=== PATIENT | male | born 1990 | race Caucasian/White ===

== ENCOUNTER → 2021-10-20 | Outpatient (CLI) | payer OTHER ==
[2021-10-20 18:25] LABS: Basophils # (A) 0.05 X 10*3/uL (0.00-0.10); Basophils % (A) 0.8 %; Eosinophils % (A) 1.5 %; HCT 50.7 % (39.6-50.0); HGB 16.7 g/dL (13.0-17.0); Immature Grans, Automated 0.5 %; Lymphocytes # (A) 1.65 X 10*3/uL (0.90-5.00); Lymphocytes % (A) 24.8 %; MCH 30.2 pg (27.0-32.0); MCHC 32.9 g/dL (32.0-37.0); MCV 91.7 fL (80.0-97.0); Mean Platelet Volume 11.1 fL (9.5-12.2); Monocytes # (A) 0.56 X 10*3/uL (0.20-1.00); Monocytes % (A) 8.4 %; NRBC Per 100 WBC 0 /100 WBCS (0.0-0.0); Neutrophils # (A) 4.27 X 10*3/uL (1.80-7.70); Platelet Count 211 X 10*3/uL (140-440); RBC 5.53 X 10*6/uL (4.40-5.60); WBC 6.66 X 10*3/uL (4.50-10.00)
[2021-10-20 18:43] LABS: ALT 31 U/L (10-49); AST 21 U/L (14-35); African American GFR (CKD) 129.6 (60.0-200.0); Albumin 4.9 g/dL (3.8-4.9); Albumin/Globulin Ratio 2.23 (1.60-3.17); Alkaline Phosphatase 50 U/L (41-126); BUN/Creat Ratio 16.56 Ratio (12.00-20.00); Blood Urea Nitrogen 14.9 mg/dL (9.0-27.0); Calcium 9.3 mg/dL (8.7-10.3); Carbon Dioxide 24.5 mmol/L (20.0-27.5); Chloride 103 mmol/L (96-109); Globulin 2.2 g/dL (1.6-3.3); Glucose 88 mg/dL (70-110); Non-African American GFR(CKD) 111.8 (60.0-200.0); Potassium 4.3 mmol/L (3.5-5.5); Sodium 140 mmol/L (135-145); Total Protein 7.1 g/dL (6.2-8.2)
[2021-10-20 18:56] LABS: Chol/HDL Ratio 2.65 Ratio
[2021-10-20 19:33] LABS: Estradiol 30.7 pg/mL
== END | disposition home or self-care (01) ==
LOC: LABWHC1 12:14
PROVIDERS: ATTEND Family Medicine
DX: E34.9 Endocrine disorder, unspecified (principal)
CPT/HCPCS: 36415; 80053; 80061; 82670; 83036; 83721; 84146; 84403; 84443; 84481; 85025

== ENCOUNTER → 2023-04-25 | Outpatient (CLI) | payer OTHER ==
[2023-04-26 02:05] LABS: HCT 47.2 % (39.6-50.0); HGB 15.4 d/dL (13.0-17.0); MCH 30.7 pg (27.0-32.0); MCHC 32.6 d/dL (32.0-37.0); Mean Platelet Volume 11.6 FL (9.5-12.2); NRBC Per 100 WBC 0 X 10*3/uL (0.00-0.01); Platelet Count 214 X 10*3/uL (140-440); RBC 5.02 X 10*6/uL (4.40-5.60); RDW 13.2 % (11.5-14.5); WBC 8.69 X 10*3/uL (4.50-10.00)
== END | disposition home or self-care (01) ==
LOC: LABWHC1 16:33
PROVIDERS: ATTEND Family Medicine
DX: E34.9 Endocrine disorder, unspecified (principal)
CPT/HCPCS: 36415; 84403; 85027

== ENCOUNTER → 2023-07-26 | Outpatient (CLI) | payer OTHER ==
[2023-07-26 20:21] LABS: HCT 48.8 % (39.6-50.0); HGB 16.4 g/dL (13.0-17.0); MCH 30.9 pg (27.0-32.0); MCHC 33.6 g/dL (32.0-37.0); MCV 92.1 FL (80.0-97.0); Mean Platelet Volume 11.3 FL (9.5-12.2); NRBC Per 100 WBC 0 X 10*3/uL (0.00-0.01); Platelet Count 217 X 10*3/uL (140-440); WBC 8.48 X 10*3/uL (4.50-10.00)
[2023-07-27 02:29] LABS: Estradiol 84.1 pg/mL
== END | disposition home or self-care (01) ==
LOC: LABWHC1 13:39
PROVIDERS: ATTEND Family Medicine
DX: E34.9 Endocrine disorder, unspecified (principal)
CPT/HCPCS: 36415; 82670; 84403; 85027